=== PATIENT | male | born 1960 | race Two or more races ===

== ENCOUNTER 2021-08-31 00:20 | Emergency (ER) | payer OTHER ==
[~2021-08-31] VITALS: Ht 182.9 cm; Wt 95.3 kg
[2021-08-31] MEDS ORDERED: KETO10TA2 PO (04:51)
[2021-08-31] MEDS ORDERED: CIPRO500 MG PO (04:51)
[2021-08-31] MEDS ORDERED: TAMS0.4C PO (04:54)
== END 2021-08-31 05:08 ==
LOC: ER 00:20
DX: N23 Unspecified renal colic (principal)